=== PATIENT | male | born 1990 | race Two or more races ===

== ENCOUNTER 2022-11-09 16:02 | Emergency (ER) | payer SELFPAY ==
[~2022-11-09] VITALS: Ht 177.8 cm; Wt 90.9 kg
[2022-11-09 16:33] VITALS: BP 129/81
[2022-11-09] MEDS ORDERED: ONDANSETRON HCL 4 MG/2 ML VIAL IM ONE (17:00)
[2022-11-09] MEDS ORDERED: MORPHINE SULFATE INJ 2 MG/ml SYRG IV ONE (17:00)
[2022-11-09] MEDS ORDERED: ONDANSETRON ODT 4 MG TAB PO ONE (18:45)
[2022-11-09] MEDS ORDERED: HYDROcodone-ACET 5/325MG TAB PO ONE (18:45)
== END 2022-11-09 19:30 | disposition home or self-care (01) ==
LOC: ER 16:02 → EDBD 16:02 → ER 19:29
DX: R51.9 Headache, unspecified (principal); M54.50 Low back pain, unspecified; V89.2XXA Person injured in unspecified motor-vehicle accident, traffic, initial encounter; Y93.89 Activity, other specified; Y92.89 Other specified places as the place of occurrence of the external cause; Y99.8 Other external cause status
CPT/HCPCS: 70450; 72125; 72128; 72131; 74176; 99284; Q0162